=== PATIENT | male | born 1975 | race Caucasian/White ===

== ENCOUNTER 2019-04-16 08:00 | Outpatient (CLI) | payer BC ==
--- NOTE | ~2019-04-16 | HEMODYNAMI ---
PATIENT:MILLY TO MEDICAL RECORD: [id number] : 79 LOCATION:[facility]# [id number] ADMISSION DATE: 04/16/19 Generatedon:04/16/20198:35 Patient name: MILLY TO Patient #: [id number] SSN: : 1975 Date of study: 04/16/2019 Page: Of Hemodynamic Procedure Report Patient Data Patient Demographics Procedure consent was obtained First Name: MILLY Gender: Male Last Name: ZULEIKA : 1975 Middle Initial: P Age: 43 year(s) Patient #: [id number] Race: Unknown Additional ID: [id number] Contact details [address]: [address] [place] [address] ROAD State: [place] City: [place] Zip code: [address] Past Medical History Allergies: No known allergies Admission Admission Data Admission Date: 04/16/2019 Admission Time: 8:30 Procedure Procedure Types Cath Procedure Peripheral Cath Diagnostic Procedure Miscellaneous Aspiration/Injection (Joint) Procedure Description Procedure Date Procedure Date: 04/16/2019 Procedure Start Time: 8:17 Procedure Staff Name Function Michael Schulz MD Performing Physician Adán Steinberg RT Monitor Adán Steinberg RT Scrub Adriane Zelaya RN Nurse Procedure Data Cath Procedure Fluoroscopy Diagnostic fluoroscopy Total fluoroscopy Time: 0.8 time: 0.8 min min Diagnostic fluoroscopy Total fluoroscopy dose: 33 dose: 33 mGy mGy Hemodynamics Rest Pre Cath Intra NCS Post Cath Procedure Log Time Note 8:11:54 Michael Schulz MD sent for patient. Start room use. 8:11:59 Time tracking: Regular hours (M-F 7:00 - 5:00) 8:12:06 Patient received from Other to IR Alert and oriented. Tansferred to table in Prone position. 8:12:09 Signed procedure consent form obtained from patient. 8:12:13 Correct patient and procedure confirmed by team. 8:12:16 Full Disclosure recording started 8:12:16 8:12:17 Pre-procedure instructions explained to patient. 8:12:18 Pre-procedure instructions explained to patient. 8:12:18 Pre-op teaching completed and patient verbalized understanding. 8:12:29 Patient allergic to No known allergies 8:12:35 Is patient on blood thinner?No 8:12:45 Lumbar area was prepped with betadine and draped in sterile fashion 8:12:59 KIT EPIDURAL CATHETERIZATION opened to sterile field. 8:16:43 Physician arrived 8:16:44 --------ALL STOP TIME OUT------ 8:16:44 Final Timeout: patient, procedure, and site verified with staff and physician. All members of the team are in agreement. 8:16:48 Lumbar site verified by team. 8:16:55 Sedation plan: Local Anesthetic Medication:Lidocaine 8:17:40 Procedure started. 8:17:44 Local anesthetic to Lumbar area with Lidocaine 1% by Michael Schulz MD.INITIAL ACCESS ONLY 8:30:06 Procedure ended.(Physican Out) 8:34:38 Fluoroscopy time 00.80 minutes. 8:34:42 Fluoroscopy dose: 33 mGy 8:34:42 Flurop Dose total: 33 8:34:57 bandaide applied site staple pt sent home Device Usage Item Name Manufacture Quantity Catalog Hospital Part Current [facility] l Lot# / Number Charge Number Stock Stock Serial# Code KIT EPIDURAL Teleflex 1 [id number] CATHETERIZATION Signature Audit [place] Stage Time Signature Unsigned Intra-Procedure 04/16/2019 Adán 8:35:[address] [facility] [address] [place] [address]
== END 2019-04-16 08:01 | disposition home or self-care (01) ==
LOC: D.RAD 08:00
PROVIDERS: ATTEND Radiology Diagnostic Radiology
DX: M51.16 Intervertebral disc disorders with radiculopathy, lumbar region (principal)